=== PATIENT | male | born 1995 | race Caucasian/White ===

== ENCOUNTER 2016-09-18 19:30 | Emergency (ER) | payer BC, MEDICAID ==
--- NOTE | 2016-09-18 22:01 | ED ---
Upper Extremity Pain - HPI Summary HPI Summary: 20M presents with numbness or ulnar aspect of left index finger for 4 days. He denies any pain or tingling. He denies any neck pain. He states the numbness is constant. He has not tried anything. He has never had this before. 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 He states that the numbness makes it hard to type. He denies any injury. - History of Current Complaint Chief Complaint: EDExtremityUpper Stated Complaint: NUMBNESS IN FINGER Time Seen by Provider: 09/18/16 21:24 - Allergies/Home Medications Allergies/Adverse Reactions: Allergies Allergy/AdvReac Type Severity Reaction Status Date / Time Haloperidol [From Haldol] Allergy Intermediate See Comment Verified 08/08/14 16: 17 PMH/Surg Hx/FS Hx/Imm Hx Endocrine/Hematology History: Denies: Hx Diabetes, Hx Thyroid Disease Cardiovascular History: Denies: Hx Hypertension Respiratory History: Denies: Hx Asthma, Hx Chronic Obstructive Pulmonary Disease (COPD) GI History: Denies: Hx Ulcer Neurological History: Reports: Hx Seizures Psychiatric History: Reports: Hx Depression, Hx Substance Abuse Denies: Hx Eating Disorder, Hx of Violent Episodes Against Others - Surgical History Surgery Procedure, Year, and Place: nerve graft to thumb, and a metal plate to ring finger. Infectious Disease History: No Infectious Disease History: Denies: Hx Hepatitis, Hx Human Immunodeficiency Virus (HIV), Traveled Outside the [place] in Last 30 Days - Family History Known Family History: Positive: Hypertension - Social History Alcohol Use: None Substance Use Type: Reports: None, Prescribed Substance Use Comment - Amount & Last Used: HX OF SUBSTANCE ABUSE PER MOTHER Smoking Status (MU): Light Every Day Tobacco Smoker Type: Cigarettes Have You Smoked in the Last Year: Yes Review of Systems Negative: Fever Negative: Chest Pain Negative: Shortness Of Breath Positive: Numbness - left index finger All Other Systems Reviewed And Are Negative: Yes Physical Exam Triage Information Reviewed: Yes Vital Signs On Initial Exam: Initial Vitals Temp Pulse Resp BP Pulse Ox 98.3 F 100 18 146/78 97 09/18/16 19:44 09/18/16 19:44 09/18/16 19:44 09/18/16 19:44 09/18/16 19:44 Vital Signs Reviewed: Yes Appearance: Positive: Well-Appearing Skin: Positive: Warm, Dry Head/Face: Positive: Normal Head/Face Inspection Eyes: Positive: Normal, Conjunctiva Clear Respiratory/Lung Sounds: Positive: Clear to Auscultation, Breath Sounds Present Cardiovascular: Positive: Normal, RRR Musculoskeletal: Positive: Strength/ROM Intact - hand, Other - nontender finger , neg spurling, tinnels, phalen, loss of pinprick sensation over ulnar aspect of left index finger, good pulses, capillary refill< 2secs Diagnostics - Vital Signs Vital Signs Temp Pulse Resp BP Pulse Ox 09/18/16 19:44 98.3 F 100 18 146/78 97 - Laboratory Lab Statement: Any lab studies that have been ordered have been reviewed, and results considered in the medical decision making process. Course/Dx - Course Course Of Treatment: 20M presents with numbness or ulnar aspect of left index finger for 4 days. He denies any pain or tingling. He denies any neck pain. He states the numbness is constant. He has not tried anything. He has never had this before. 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 He states that the numbness makes it hard to type. He denies any injury. on exam loss of pin prick sensation on half of left index finger on ulnar side. neg tinnels or phalen. neg spurling. explained likely at digital level causing numbness but do not have cause. told to potential follow up with hand surgery for nerve testing. patient understands and agrees with plan. - Diagnoses Differential Diagnosis/HQI/PQRI: Positive: Sprain, Other - parasethesia, carpel tunnel Provider Diagnoses: Numbness of finger Discharge - Discharge Plan Condition: Good Disposition: HOME Referrals: Aba Faith MD [Primary Care Provider] - Gilbert Donald MD [Medical Doctor] - Additional Instructions: Place ice on finger Take ibuprofen every 6 hours Follow up with ortho Return to ED if develop any new or worsening symptoms
[2016-09-18 22:11] VITALS: BP 162/91
== END 2016-09-18 22:11 | disposition home or self-care (01) ==
LOC: ED 19:30
DX: R20.0 Anesthesia of skin (principal); F17.210 Nicotine dependence, cigarettes, uncomplicated
CPT/HCPCS: 99281

== ENCOUNTER 2018-08-20 15:29 | Emergency (ER) | payer BC ==
[2018-08-20 16:15] VITALS: BP 129/89
--- NOTE | 2018-08-20 16:30 | UC ---
Skin Complaint HPI - HPI Summary HPI Summary: 22 yo male with mild;y pruritic rash to left neck x a month or so getting larger HC cr helps with redness - History of Current Complaint Chief Complaint: UCSkin Time Seen by Provider: 08/20/18 16:19 Stated Complaint: RASH Hx Obtained From: Patient Onset/Duration: Gradual Onset, Lasting Weeks Timing: Constant Onset Severity: Mild Current Severity: Mild Pain Intensity: 3 Pain Scale Used: 0-10 Numeric Location: Discrete Character: Pruritus, Redness, Raised Aggravating Factor(s): Nothing Alleviating Factor(s): OTC Creams/Salves Associated Signs & Symptoms: Positive: Rash. Negative: Nausea, Vomiting, Numbness, Thirst, Diaphoresis, Weakness, Pallor, Shivering, Difficulty Breathing , Fever, Chills, Cough, Wheezing, Chest Pain, Hoarseness, Throat Tightening, Abdominal Pain, Lightheadedness, Syncope, Drainage, Bruising, Tenderness, Red Streaks, Joint Swelling - Allergy/Home Medications Allergies/Adverse Reactions: Allergies Allergy/AdvReac Type Severity Reaction Status Date / Time haloperidol [From Haldol] Allergy Intermediate See Comment Verified 08/20/18 16: 16 Home Medications: Home Medications Baclofen TAB* [Lioresal TAB*] 20 mg PO SEE INSTRUCTIONS 08/20/18 [History Confirmed 08/20/18] PMH/Surg Hx/FS Hx/Imm Hx Previously Healthy: Yes - Surgical History Surgical History: Yes Surgery Procedure, Year, and Place: nerve graft to thumb, and a metal plate to ring finger. - Family History Known Family History: Positive: Hypertension - Social History Alcohol Use: Occasionally Substance Use Type: None Substance Use Comment - Amount & Last Used: HX OF SUBSTANCE ABUSE PER MOTHER Smoking Status (MU): Former Smoker Type: Cigarettes Have You Smoked in the Last Year: Yes When Did the Patient Quit Smoking/Using Tobacco: several months ago Household Exposure Type: Cigarettes - Immunization History Most Recent Influenza Vaccination: unable to determine Most Recent Tetanus Shot: unable to determine Most Recent Pneumonia Vaccination: unable to determine Review of Systems All Other Systems Reviewed And Are Negative: Yes Constitutional: Positive: Negative Skin: Positive: Rash Eyes: Positive: Negative ENT: Positive: Negative Respiratory: Positive: Negative Cardiovascular: Positive: Negative Gastrointestinal: Positive: Negative Genitourinary: Positive: Negative Motor: Positive: Negative Neurovascular: Positive: Negative Musculoskeletal: Positive: Negative Neurological: Positive: Negative Psychological: Positive: Negative Physical Exam Triage Information Reviewed: Yes Appearance: Well-Appearing, No Pain Distress, Well-Nourished Vital Signs: Initial Vital Signs Temp 98.4 F 08/20/18 16:10 Pulse 70 08/20/18 16:10 BP 129/89 08/20/18 16:10 Pulse Ox 100 08/20/18 16:10 Vital Signs Reviewed: Yes Eyes: Positive: Conjunctiva Clear ENT: Negative: Hearing grossly normal, Nasal congestion, Nasal drainage, Tonsillar swelling, Tonsillar exudate, Muffled voice, Hoarse voice, Uvula midline Dental Exam: Normal Neck: Positive: Supple, Nontender, No Lymphadenopathy Respiratory: Positive: Lungs clear, Normal breath sounds, No respiratory distress Cardiovascular: Positive: RRR, No Murmur Musculoskeletal: Positive: ROM Intact, No Edema Neurological: Positive: Alert Psychological Exam: Normal Skin Exam: Other - 3x5 cm area of erthyema, border heaped and covered with scale Course/Dx - Diagnoses Provider Diagnosis: Ringworm of body Discharge - Sign-Out/Discharge Documenting (check all that apply): Patient Departure All imaging exams completed and their final reports reviewed: No Studies - Discharge Plan Condition: Stable Disposition: HOME Patient Education Materials: Skin Yeast Infection (ED) Referrals: Aba Faith MD [Primary Care Provider] - 2 Weeks (recheck in 2-3 weeks) Additional Instructions: cool compresses with EPSOM salts twice daily (for 10-15 minutes) gently dry Apply LOTRIMEN CR you will need to do this for 2-3 weeks see you MD in 2-3 weeks if not better - Billing Disposition and Condition Condition: STABLE Disposition: Home
== END 2018-08-20 16:52 | disposition home or self-care (01) ==
LOC: UCEAST 15:29
DX: B35.9 Dermatophytosis, unspecified (principal); Z87.891 Personal history of nicotine dependence
CPT/HCPCS: 99212; G0463

== ENCOUNTER 2018-09-17 11:39 | Emergency (ER) | payer BC ==
[2018-09-17 11:47] VITALS: BP 123/84
--- NOTE | 2018-09-17 11:59 | UC ---
Skin Complaint HPI - HPI Summary HPI Summary: Patient is a 22-year-old male here with a finger rash. Patient's had a rash to his right fifth digit for the past 3 weeks. Patient has redness that is pruritic in nature from the DIP distally. Patient initially had some vesicles per a cell phone picture that have resolved. Patient has no pain in his finger. Patient was recently treated with Lotrimin for a fungal infection on his neck. Patient tried his Lotrimin on his finger which made his rash worse. Patient does not work in the medical field and has never had herpes. 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 Onset/Duration: Gradual Onset Skin Exposure Onset/Duration: Weeks Ago Pain Intensity: 4 - Allergy/Home Medications Allergies/Adverse Reactions: Allergies Allergy/AdvReac Type Severity Reaction Status Date / Time haloperidol [From Haldol] Allergy Intermediate See Comment Verified 09/17/18 11: 47 PMH/Surg Hx/FS Hx/Imm Hx Previously Healthy: Yes Psychological History: Depression - Surgical History Surgical History: Yes Surgery Procedure, Year, and Place: nerve graft to thumb, and a metal plate to ring finger.right side - Family History Known Family History: Positive: Hypertension - Social History Alcohol Use: Occasionally Substance Use Type: None Substance Use Comment - Amount & Last Used: HX OF SUBSTANCE ABUSE PER MOTHER Smoking Status (MU): Light Every Day Tobacco Smoker Type: Cigarettes Have You Smoked in the Last Year: Yes When Did the Patient Quit Smoking/Using Tobacco: several months ago Household Exposure Type: Cigarettes - Immunization History Most Recent Influenza Vaccination: unable to determine Most Recent Tetanus Shot: unable to determine Most Recent Pneumonia Vaccination: unable to determine Review of Systems All Other Systems Reviewed And Are Negative: Yes Physical Exam - Summary Physical Exam Summary: Vital Signs Reviewed: Yes A+Ox3, no distress Eyes: Conjunctiva Clear ENT: Hearing grossly normal neck: supple Respiratory: Positive: No respiratory distress, No accessory muscle use Cardiovascular: skin color reflect adequate perfusion Musculoskeletal Exam: MCMANUS x 4 without difficulty Neurological: Positive: Alert, ambulatory without difficulty Skin: Right fifth digit: Area of erythema from the DIP distally. Full range of motion all joints. Cap refill less than 2 seconds. No purulent drainage, fluctuance, induration. No tenderness. No warmth. Small area of excoriations. No vesicular lesions Triage Information Reviewed: Yes Vital Signs: Initial Vital Signs Temp 98 F 09/17/18 11:44 Pulse 73 09/17/18 11:44 Resp 18 09/17/18 11:44 BP 123/84 09/17/18 11:44 Pulse Ox 100 09/17/18 11:44 Course/Dx - Course Course Of Treatment: Patient is here suspected herpetic hawa. Patient had a picture on his cell phone which looked herpetic in nature. Patient's never had symptoms as before. Patient's exam is not consistent with cellulitis, felon, paronychia. Patient has tried antifungal medication which made it worse. Patient was started on a single beer and instructed to follow-up with his primary care doctor for further evaluation if that does not work. - Differential Diagnoses - Skin Complaint Differential Diagnoses: Abscess, Cellulitis, Eczema, Viral Exanthem, Other - herpetic hawa - Diagnoses Provider Diagnosis: Herpetic hawa Discharge - Sign-Out/Discharge Documenting (check all that apply): Patient Departure All imaging exams completed and their final reports reviewed: No Studies - Discharge Plan Condition: Stable Disposition: HOME Prescriptions: Acyclovir 200 mg PO BID 7 Days #28 capsule Patient Education Materials: Acute Rash (ED) Referrals: Aba Faith MD [Primary Care Provider] - Additional Instructions: Please follow-up with your doctor in 1 week to get your finger rechecked Please take your medication as prescribed - Billing Disposition and Condition Condition: STABLE Disposition: Home
== END 2018-09-17 12:24 | disposition home or self-care (01) ==
LOC: UCEAST 11:39
DX: B00.89 Other herpesviral infection (principal); F32.9 Major depressive disorder, single episode, unspecified; F17.210 Nicotine dependence, cigarettes, uncomplicated
CPT/HCPCS: 99212; G0463